=== PATIENT | male | born 1970 | race Asian ===

== ENCOUNTER 2019-04-20 10:19 | Day surgery (SDC) | payer MEDICARE, OTHER ==
[2019-04-18 15:19] VITALS: BMI 24.2
[~2019-04-20 10:19] MED LIST: ACETAMINOPHEN 325 MG TABLET (FP) PO PRN; CYCLOPENTOLATE HCL 1% OPHTH SOLN 2 ML BOTTLE OP SCH; KETOROLAC TROMETHAMINE 0.5% EYE DROP 1 DROP DROPS OP SCH; OFLOXACIN 0.3% OPHTHALMIC SOLUTION 5 ML BOTTLE OP SCH; PHENYLEPHRINE 2.5% OPHTH SOLN 15 ML BOTTLE OP SCH; TROPICAMIDE 1% OPHTH SOLN 15 ML BOTTLE OP SCH
[2019-04-20 10:45] VITALS: BP 139/77; PULSE 81; TEMP 98.8
== END 2019-04-20 11:28 | disposition home or self-care (01) ==
LOC: JASU-SURG 10:19
PROVIDERS: ATTEND Ophthalmology
DX: Z53.8 Procedure and treatment not carried out for other reasons (principal)

== ENCOUNTER 2019-07-06 09:05 | Day surgery (SDC) | payer MEDICARE, OTHER ==
[2019-07-05 16:02] VITALS: BMI 24.2
[~2019-07-06 09:05] MED LIST changes: -CYCLOPENTOLATE HCL 1% OPHTH SOLN 2 ML BOTTLE OP SCH; -KETOROLAC TROMETHAMINE 0.5% EYE DROP 1 DROP DROPS OP SCH; -OFLOXACIN 0.3% OPHTHALMIC SOLUTION 5 ML BOTTLE OP SCH; -PHENYLEPHRINE 2.5% OPHTH SOLN 15 ML BOTTLE OP SCH; -TROPICAMIDE 1% OPHTH SOLN 15 ML BOTTLE OP SCH
[2019-07-06] MEDS ORDERED: MIDAZOLAM HCL 2 MG/2 ML SINGLE DOSE VIAL ONE (09:27)
[2019-07-06] MEDS ORDERED: TROPICAMIDE 1% OPHTH SOLN 15 ML BOTTLE ONE (09:52)
[2019-07-06] MEDS ORDERED: CYCLOPENTOLATE HCL 1% OPHTH SOLN 2 ML BOTTLE ONE (09:52)
[2019-07-06] MEDS ORDERED: KETOROLAC TROMETHAMINE 0.5% EYE DROP 1 DROP DROPS ONE (09:52)
[2019-07-06] MEDS ORDERED: PHENYLEPHRINE 2.5% OPHTH SOLN 15 ML BOTTLE ONE (09:52)
[2019-07-06] MEDS ORDERED: OFLOXACIN 0.3% OPHTHALMIC SOLUTION 5 ML BOTTLE ONE (09:52)
[2019-07-06] MEDS: CYCLOPENTOLATE HCL 1% OPHTH SOLN 2 ML BOTTLE OP SCH ×3 (10:10→11:19)
[2019-07-06] MEDS: OFLOXACIN 0.3% OPHTHALMIC SOLUTION 5 ML BOTTLE OP SCH ×3 (10:11→11:20)
[2019-07-06] MEDS: KETOROLAC TROMETHAMINE 0.5% EYE DROP 1 DROP DROPS OP SCH ×3 (10:11→11:19)
[2019-07-06] MEDS: PHENYLEPHRINE 2.5% OPHTH SOLN 15 ML BOTTLE OP SCH ×3 (10:11→11:20)
[2019-07-06] MEDS: TROPICAMIDE 1% OPHTH SOLN 15 ML BOTTLE OP SCH ×3 (10:11→11:20)
[2019-07-06] MEDS ORDERED: TETRACAINE 0.5% OPHTH SOLN 2 ML BOTTLE OD ONE (12:09)
[2019-07-06] MEDS ORDERED: POVIDONE-IODINE 5% OPHTHALMIC PREP 30 ML SOLUTION OD ONE (12:11)
[2019-07-06] MEDS ORDERED: TRYPAN BLUE 0.5 ML DISP.SYRIN IO ONE (12:19)
[2019-07-06] MEDS ORDERED: HYALURONATE SODIUM 14 MG/ML DISP.SYRIN IO ONE (12:19)
[2019-07-06] MEDS ORDERED: LIDOCAINE HCL 1% PRESERVATIVE FREE - 30ML VIAL IO ONE (12:19)
[2019-07-06] MEDS ORDERED: BSS (NA/CA/MG/K) BALANCED SALT SOLUTION OPHTH SOLN 15 ML BOTTLE OD ONE (12:19)
[2019-07-06] MEDS ORDERED: CHONDROITIN SU A/HYALUR SOD 1 KIT IO ONE (12:19)
[2019-07-06] MEDS ORDERED: EPINEPHrine/PF 1 MG/1 ML (1:1,000) AMPULE SQ ONE (12:26)
[2019-07-06 13:19] VITALS: TEMP 98.2
[2019-07-06 14:04] VITALS: BP 156/71; PULSE 68
--- NOTE | 2019-07-11 15:54 | OP ---
DATE OF OPERATION: 07/06/2019 PREOPERATIVE DIAGNOSIS: Mature cataract, right eye. POSTOPERATIVE DIAGNOSIS: Mature cataract, right eye. PROCEDURE: Phacoemulsification of right cataract, with capsular staining with trypan blue and posterior chamber intraocular lens implantation, lens used [id number], 19.0 diopter power, serial number [id number]. ANESTHESIA: Topical MAC. COMPLICATIONS: None. PROCEDURE: The patient was brought to the operating room and correctly identified along with the operative site as well as the intraocular lens gregg. He was then prepped and draped in the usual sterile fashion including 5% Betadine solution in the conjunctival sac and an eyelid drape. An eyelid speculum was then placed into the right eye. The eye was inspected and a mature white cataract was noted. A paracentesis port was created and 0.5 mL of preservative-free Lidocaine 1% was given intracamerally. An air bubble was also then placed in the eye, and beneath the air bubble, the anterior capsule was stained with trypan blue. The trypan blue was irrigated with 0.5 mL of the same preservative-free Lidocaine 1%. Viscoelastic was injected to inflate the anterior chamber, and a temporal clear corneal wound was created. A continuous circular capsulorrhexis was performed. The nucleus was then hydro-dissected with BSS and removed with phacoemulsification via a rgnxsk-eqq-ynsbwng approach. The cataract was noted to be dense with very residual epinucleus/cortical material. Care was made to use a combination of a emlvch-nyr-hkxfqdr approach as well as horizontal chopping to minimize the phaco energy in the eye. Care was also made to cool the phaco tip during the quadrant removal. After the cataract was removed, a small amount of cortical material was irrigated and aspirated from the eye. A small corneal burn was noted in the inferior part of the corneal wound. Viscoelastic was injected to inflate the capsular bag, and the lens was injected into the capsular bag. Viscoelastic was then irrigated and aspirated from the eye. The wounds were stromal hydrated and tested with external pressure with Weck-duran sponges. Even though the eye seemed to be stable and there seemed to be no leakage from the wound, a single 10-0 nylon suture was placed in the temporal clear corneal wound. Again, the anterior chamber was inflated with BSS and all wounds tested again and no leakage noted. Topical vancomycin given, the eye patched and shielded, and the patient discharged from the operating room in a stable condition. MICAELA KATE M.D. [facility]/[id number]
== END 2019-07-06 13:40 | disposition home or self-care (01) ==
LOC: JASU-SURG 09:05
PROVIDERS: ATTEND Ophthalmology
PROC: 08RJ3JZ Replacement of Right Lens with Synthetic Substitute, Percutaneous Approach (ICD-10-PCS; principal; 2019-07-06 10:15)
DX: H25.21 Age-related cataract, morgagnian type, right eye (principal)